=== PATIENT | female | born 1945 | race Caucasian/White ===

== ENCOUNTER 2018-12-14 05:53 | Day surgery (SDC) | payer MEDICARE, OTHER ==
[~2018-12-14] VITALS: Ht 144.8 cm; Wt 72.4 kg
[~2018-12-14 05:53] MED LIST: ASPI-817 PO; CETI10TA19 PO; CITRACAL PO; LORA0.5T PO; LOSA100T15 PO; MECL-77 PO; MELO7.5T38 PO; METF500T24 PO; OMEP20CA16 PO; PANT20TA3 PO; ZOC10 PO; ZOLP5TAB7 PO
[2018-12-14 07:19] VITALS: Ht 144.8 cm; Wt 72.4 kg
--- NOTE | 2018-12-14 07:35 | PREAC ---
Date/Time of Note Date/Time of Note DATE: 12/14/18 TIME: 07:34 Anesthesia Eval and Record Evaluation Time Pre-Procedure Interview DATE: 12/14/18 TIME: 07:34 Age 73 Sex female NPO: 8 hrs Preoperative diagnosis GERD, ob stool Planned procedure EGD Colonoscopy Past Medical History Past Medical History: Includes Cardio: HTN, Dyslipidemia Endo: Diabetes Neuro: CVA Surgery & Anesthesia Issues Significant blood loss, No known issue Meds Anticoagulation: No Beta Amber within 24 hr: No Reason Beta Amber not given: Pt. not on B-Amber Reported Medications Calcium Citrate* (Citracal*) 950 Mg Tab, 950 MG PO DAILY for SUPPLIMENT, TAB 01/02/15 Meclizine Hcl* (Meclizine Hcl*) 25 Mg Tablet, 25 MG PO Q8H PRN for VERTIGO, TAB 01/02/15 Lorazepam* (Lorazepam*) 0.5 Mg Tablet, 0.5 MG PO HS PRN for ANXIETY, TAB 01/02/15 Metformin Hcl* (Metformin Hcl*) 500 Mg Tablet, 500 MG PO WITH BREAKFAST, TAB 01/02/15 Aspirin* (Aspirin* EC) 81 Mg Tablet.dr, 81 MG PO DAILY, TAB 01/02/15 Cetirizine Hcl* (Cetirizine Hcl*) 10 Mg Tablet, 10 MG PO DAILY, TAB 01/02/15 Simvastatin (Simvastatin) 10 Mg Tablet, 10 MG PO HS, TAB 01/02/15 Meloxicam* (Meloxicam*) 7.5 Mg Tablet, 7.5 MG PO DAILY, TAB 01/02/15 Omeprazole* (Omeprazole*) 20 Mg Capsule.dr, 20 MG PO DAILY, CAP 01/02/15 Pantoprazole* (Pantoprazole*) 20 Mg Tablet.dr, 20 MG PO DAILY, TAB 01/02/15 Zolpidem Tartrate* (Zolpidem Tartrate*) 5 Mg Tablet, 5 MG PO HS PRN, TAB 01/02/15 Losartan Potassium* (Losartan Potassium*) 100 Mg Tablet, 100 MG PO DAILY, TAB 01/02/15 Meds reviewed: Yes Allergies Uncoded Allergies: NKDA (Allergy, Unknown, 01/02/15) Allergies Reviewed: Yes Labs/Studies Labs Reviewed: Reviewed by anesthesiologist test: N/A Studies: ECG (n/a), CXR (n/a) Pre-procedure Exam Airway: Adequate mouth opening Mallampati: Mallampati I Teeth: Abnormal (denture) Lung: Normal Heart: Normal ASA Physical Status ASA physical status: 2 Emergency: None Planned Anesthetic General/MAC: MAC Planned Pain Management Parenteral pain med Pre-operative Attestations Prior to commencing anesthesia and surgery, the patient was re-evaluated, there was verification of: *The patient's identity *The results of appropriate recent lab work and preoperative vital signs *The above evaluation not changing prior to induction *Anesthetic plan, risk benefits, alternative and complications discussed with patient/family; questions answered; patient/family understands, accepts and wishes to proceed. BINA BARBOUR MD Dec 14, 2018 07:35
[2018-12-14] MEDS ORDERED: PROPOFOL 20 ML ONE ×2 (07:39→08:38)
[2018-12-14 07:55] VITALS: BP 145/87; PULSE 103; RESP 20
[2018-12-14 09:05] VITALS: BP 130/58; PULSE 70; RESP 16
--- NOTE | 2018-12-14 16:42 | PAC ---
Date/Time of Note Date/Time of Note DATE: 12/14/18 TIME: 16:41 Post-Anesthesia Notes Post-Anesthesia Note Last documented vital signs Vital Signs Date Temp Pulse Resp B/P (MAP) Pulse Ox O2 O2 Flow FiO2 Time Delivery Rate 12/14/18 98 70 16 130/58 98 Room Air 09:05 (82) 12/14/18 97.8 07:55 Activity: WNL Respiratory function: WNL Cardiovascular function: WNL Mental status: Baseline Pain reasonably controlled: Yes Hydration appropriate: Yes Nausea/Vomiting absent: No BINA BARBOUR MD Dec 14, 2018 16:42
== END 2018-12-14 11:08 | disposition home or self-care (01) ==
LOC: GIL 05:53
PROVIDERS: ATTEND Internal Medicine Gastroenterology
DX: K92.1 Melena (principal); K64.8 Other hemorrhoids; K57.30 Diverticulosis of large intestine without perforation or abscess without bleeding; K21.9 Gastro-esophageal reflux disease without esophagitis; E11.9 Type 2 diabetes mellitus without complications; I10 Essential (primary) hypertension; E78.5 Hyperlipidemia, unspecified; Z86.73 Personal history of transient ischemic attack (TIA), and cerebral infarction without residual deficits; Z79.82 Long term (current) use of aspirin; Z79.84 Long term (current) use of oral hypoglycemic drugs
CPT/HCPCS: 82962; 88305; 88312